=== PATIENT | male | born 1995 | race Caucasian/White ===

== ENCOUNTER 2019-10-04 11:53 | Emergency (ER) | payer BC ==
--- NOTE | 2019-10-04 13:13 | UC ---
UC General HPI - HPI Summary HPI Summary: 23 YO feeling unwell for the last several days with nausea. He had one episode of emesis on 10/01, was ok for 2 days, had 2 episodes of emesis today. He has no abdominal pain or fever. Normal stool today. Appetite decreased. - History of Current Complaint Chief Complaint: UCGI Stated Complaint: NAUSEA VOMITING FATIGUE Time Seen by Provider: 10/04/19 13:09 Hx Obtained From: Patient Onset/Duration: Gradual Onset, Lasting Days Timing: Intermittent Episodes Lasting: Onset Severity: Mild Current Severity: Mild Pain Intensity: 0 Associated Signs & Symptoms: Positive: Decreased Oral Intake, Nausea, Vomiting. Negative: Diarrhea, Palpitations, Syncope - Allergy/Home Medications Allergies/Adverse Reactions: Allergies Allergy/AdvReac Type Severity Reaction Status Date / Time outdoor air borne Allergy Sneezing Uncoded 10/04/19 12:39 Home Medications: Home Medications Omeprazole 40 mg PO 10/04/19 [History] PMH/Surg Hx/FS Hx/Imm Hx Previously Healthy: Yes - obese - Surgical History Surgical History: Yes Surgery Procedure, Year, and Place: colon perf repair - Family History Known Family History: Positive: Non-Contributory - Social History Occupation: Employed Full-time Lives: With Family Alcohol Use: Weekly Substance Use Type: None Smoking Status (MU): Never Smoked Tobacco Household Exposure Type: Cigarettes - Immunization History Most Recent Influenza Vaccination: Not the Season Vaccination Up to Date: Yes Review of Systems All Other Systems Reviewed And Are Negative: Yes Constitutional: Positive: Fatigue Skin: Positive: Negative Eyes: Positive: Negative ENT: Positive: Negative Respiratory: Positive: Negative Cardiovascular: Positive: Negative Gastrointestinal: Positive: Vomiting, Nausea. Negative: Abdominal Pain, Diarrhea Genitourinary: Positive: Negative Motor: Positive: Negative Neurovascular: Positive: Negative Musculoskeletal: Positive: Negative Neurological/Mental Status: Positive: Negative Psychological: Positive: Negative Is Patient Immunocompromised?: No Physical Exam Triage Information Reviewed: Yes Appearance: Well-Appearing, No Pain Distress, Obese Vital Signs: Initial Vital Signs Temp 97.6 F 10/04/19 12:29 Pulse 82 10/04/19 12:29 Resp 18 10/04/19 12:29 BP 00/00 10/04/19 12:29 Pulse Ox 99 10/04/19 12:29 ENT: Positive: Pharynx normal, TMs normal Neck: Positive: Supple, Nontender, No Lymphadenopathy Respiratory: Positive: Lungs clear, Normal breath sounds Cardiovascular: Positive: RRR, No Murmur Abdomen Description: Positive: Nontender, No Organomegaly, Soft Musculoskeletal Exam: Normal Neurological Exam: Normal Psychological Exam: Normal Skin Exam: Normal Course/Dx - Course Course Of Treatment: antinauseant, clear fluid, off work - Differential Dx - Multi-Symptom Differential Diagnoses: Other - gastroenteritis, viral illness. - Diagnoses Provider Diagnosis: Gastroenteritis Discharge ED - Sign-Out/Discharge Documenting (check all that apply): Patient Departure All imaging exams completed and their final reports reviewed: No Studies - Discharge Plan Condition: Stable Disposition: HOME Prescriptions: Ondansetron ODT TAB* [Zofran 4 MG Odt TAB*] 4 mg PO Q6H PRN #8 tab.odt PRN Reason: Nausea Patient Education Materials: Gastritis (ED), Diet for Stomach Ulcers and Gastritis (ED) Forms: *Work Release Referrals: Ailyn Braden [employer] [Primary Care Provider] - Additional Instructions: Continue sips of clear fluid, take fluids regularly. You have been given ondansetron for control of nausea. Return if you have persistent vomiting, fever, become dizzy or lightheaded, or have increasing abdominal pain. - Billing Disposition and Condition Condition: STABLE Disposition: Home
[2019-10-04] MEDS ORDERED: Ondansetron ODT TAB* 4 MG PO ONE (13:24)
[2019-10-04 13:30] VITALS: BP 130/80
== END 2019-10-04 13:39 | disposition home or self-care (01) ==
LOC: UCCORT 11:53
DX: K52.9 Noninfective gastroenteritis and colitis, unspecified (principal); Z91.09 Other allergy status, other than to drugs and biological substances
CPT/HCPCS: 99212; A9270-GY; G0463